=== PATIENT | female | born 1935 | race Caucasian/White ===

== ENCOUNTER → 2018-09-29 | Emergency (ER) | payer MEDICARE, OTHER ==
[~2018-09-29] VITALS: Ht 149.9 cm; Wt 64.0 kg
[2018-09-29 16:03] VITALS: BP 163/68
== END | disposition home or self-care (01) ==
LOC: ER 15:57
DX: S60.455A Superficial foreign body of left ring finger, initial encounter (principal); X58.XXXA Exposure to other specified factors, initial encounter; Y93.89 Activity, other specified; Y92.89 Other specified places as the place of occurrence of the external cause; Y99.8 Other external cause status
CPT/HCPCS: 99281; 99284